=== PATIENT | male | born 1960 | race Caucasian/White ===

== ENCOUNTER 2021-06-11 07:34 | Outpatient (CLI) | payer OTHER, SELFPAY ==
--- NOTE | ~2021-06-11 | CT_ITS ---
EXAMINATION: CT abdomen pelvis w con DATE: 06/11/2021 08:39 INDICATION: Abdominal pain and swelling TECHNIQUE: Computed tomography (CT) of the abdomen and pelvis was performed with 100 cc Omnipaque 350 intravenous contrast. Automated exposure control and iterative reconstruction technique were employe d. Exam dose: 1363.16 mGy-cm total exam DLP. COMPARISON: None. FINDINGS: Posterior basilar left lower lobe probably calcified pulmonary granuloma. The lung bases ar e clear of infiltrate or consolidation. Normal heart size. Coronary artery calcification. No pericardial or pleural effusion. Small sliding hiatal hernia. The liver, gallbladder, spleen, pancreas are unremarkable other than calcified pulmonary granulomas a nd a single calcification of the pancreatic head. No gallbladder wall thickening or pericholecystic fluid or fat stranding. No bile duct or pancreatic duct dilatation. Normal morphology of the adrenal glands. There is a pinpoint nonobstructing right renal calculus. No ureteral calculus or hydroureteronephrosi s is noted on either side. There is normal caliber and mild atherosclerotic calcification of the abdominal aorta. There is prominent periaortic and aortocaval lymphadenopathy as well as adenopathy along the bilatera l common, external iliac and particularly bilateral internal iliac lymph node chains. There is prostate enlargement and irregularity as well as some heterogeneous enhancement, suggesting prostate carcinoma with metastatic lymphadenopathy. There is bladder wall thickening and there is prominent fat stranding around the urinary bladder sugg esting possible cystitis. Normal appendix. No bowel obstruction or intraperitoneal free air. Small bilateral fat-containing inguinal hernias. There are degenerative changes of the thoracic and lumbar spine including moderately severe degenerat rita disc disease at L4-5 and prominent degenerative change at the apophyseal joints of the lumbar and lumbosacral area. No suspicious osteolytic or osteoblastic lesions are identified.. IMPRESSION: Periaortic, aortocaval, bilateral common, external and particularly internal iliac lymph adenopathy; differential diagnosis includes metastatic disease, very possibly due to prostate cancer, also lymphoma. Prostate enlargement and irregular enhancement, suggesting prostate cancer Bladder wall thickening and fat stranding around the bladder, suggesting bladder outlet obstruction a nd possible cystitis Small sliding hiatal hernia Pinpoint nonobstructing right renal calculus Dr. Ang telephoned on 06/11/2021 at [address] Monge's medical secretary receptionist, leaving telephone numbe r for Dr. Monge to return call for examination results. Dr. Monge returned the phone call and was given the results by Dr. Ang at 0945 hours on 06/11/2021. Reviewed, dictated and finalized at [facility]. Reviewed, dictated and finalized at [facility]. L RIGHTS INVESTIGATOR IMPRESSION: Periaortic, aortocaval, bilateral common, external and particularl y internal iliac lymphadenopathy; differential diagnosis includes metastatic di sease, very possibly due to prostate cancer, also lymphoma. Prostate enlargement and irregular enhancement, suggesting prostate cancer Bladder wall thickening and fat stranding around the bladder, suggesting bladde r outlet obstruction and possible cystitis Small sliding hiatal hernia Pinpoint nonobstructing right renal calculus Dr. Ang telephoned on 06/11/2021 at [address] Monge's medical secretary receptionist, [facility] telephone number for Dr. Monge to return call for examination results . Dr. Monge returned the phone call and was given the results by Dr. Ang at 0 945 hours on 06/11/2021.
[2021-06-11 08:32] LABS: Estimated Glomerular Filt Rate > 60
== END 2021-06-11 07:35 | disposition home or self-care (01) ==
LOC: ANHIMG 07:39
DX: M79.89 Other specified soft tissue disorders (principal); K44.9 Diaphragmatic hernia without obstruction or gangrene; N20.0 Calculus of kidney; N40.0 Benign prostatic hyperplasia without lower urinary tract symptoms
CPT/HCPCS: 74177; Q9967

== ENCOUNTER 2022-07-28 16:39 | Emergency (ER) | payer OTHER, SELFPAY ==
[2022-07-28 16:51] VITALS: BP 147/109; PULSE 101; RESP 18; TEMP 36.5; O2SAT 97
--- NOTE | 2022-07-28 16:51 | ED.DENTAL ---
HPI - Dental/Oral General Chief complaint: Dental/Oral Stated complaint: toothache Time Seen by Provider: 07/28/22 16:56 Source: patient Mode of arrival: ambulatory History of Present Illness HPI Narrative: 62 Year old man presented for complaint of left lower dental pain for about 9 days. Endorses the pain has been worsening and is radiating into the jaw with mild swelling. He reports he has a filling to this site. He denies pus or drainage, vomiting, fevers or chills. Denies dysphagia, odynophagia, dysphonia, or dyspnea. He has been taking at 1000 mg of ibuprofen 3 to 4 times a day. He has a dentist appointment scheduled on 08/07/2022. MD Complaint: tooth pain Related Data Home Medications Medication Instructions Recorded Confirmed aspirin 81 mg chewable tablet 81 mg PO DAILY 07/28/22 07/28/22 darolutamide 300 mg tablet (Nubeqa) 300 mg PO BID 07/28/22 07/28/22 escitalopram oxalate 10 mg tablet 10 mg PO DAILY 07/28/22 07/28/22 metoprolol succinate 25 mg 25 mg PO DAILY 07/28/22 07/28/22 tablet,extended release 24 hr prochlorperazine maleate 10 mg 10 mg PO PRN PRN Nausea 07/28/22 07/28/22 tablet zolpidem 5 mg tablet 5 mg PO HS PRN Insomnia 07/28/22 07/28/22 Allergies Allergy/AdvReac Type Severity Reaction Status Date / Time No Known Allergies Allergy Verified 07/28/22 16:56 Review of Systems Review of Systems: CONSTITUTIONAL: Denies body aches, fever, chills ENT: Denies rhinorrhea, congestion, sore throat, or otalgia. Reports dental pain CARDIOVASCULAR: Denies chest pain, palpitations RESPIRATORY: Denies cough or dyspnea. SKIN: Denies rash, itching, or wounds. MUSCULOSKELETAL: Denies myalgia. NEUROLOGIC: Denies headache, numbness, tingling, or weakness. [facility] Past Medical History Medical History (Updated 07/28/22 @ 17:14 by Roxanna Mendieta APRN) Hypertension Prostate cancer Comments At time of signature, I have reviewed and agree with nursing past medical, surgical, social and family history unless otherwise noted. Please see nursing chart for further information. There is no relevant family history pertinent to the presenting complaint Exam Narrative: GENERAL: Appears in pain; no acute distress. HEAD: Normocephalic, atraumatic. EYES: EOMI. No redness or drainage. Conjunctivae normal. ENT: Dental pain location of #18, dental caries noted; erythematous gum with mild swelling, no drainage; Mucous membranes pink and moist. Throat normal. Uvula midline. NECK: Normal AROM. No erythema, swelling or lymphadenopathy. CHEST: No respiratory distress. Clear to auscultation. HEART: Regular rate and rhythm. No murmur appreciated. SKIN: Warm, dry, no rash. Normal skin turgor. NEURO: No focal deficits. Alert and oriented x3. Gait steady. Course Course Emergency Course: Patient is aware of diagnosis, understands and agrees to treatment plan. Anticipatory guidance given. Patient agrees to follow-up as directed and is aware of reasons to seek care at the emergency department. Portions of this record may have been created with voice recognition software Level of Care: Express Care Visit MDM - Dental/Oral MDM Narrative Medical decision making narrative: Patients pain and complaint coupled with physical findings are consistent with dentalgia. There are no focal signs of space occupying lesions that are compromising to the airway; No uvular deviation or soft palate edema. Patient is non-toxic appearing. The floor of the mouth is soft with no signs of Darci's Angina; Patient is without trismus or drooling and able to swallow secretions. Patient is felt appropriate for discharge home with dental follow up as scheduled. Rx abx and pain med. Advised to limit use of ibuprofen, hx HTN and reports nausea. Patient also states he recently started a bp medication on low dose. Monitors bp and home and has close f/u with pcp. Differential Diagnosis Differential diagnosis: Likely gingival abscess, dental car
== END 2022-07-28 17:12 | disposition home or self-care (01) ==
PROVIDERS: Emergency Provider Nurse Practitioner Family
DX: K08.89 Other specified disorders of teeth and supporting structures (principal); I10 Essential (primary) hypertension; Z85.46 Personal history of malignant neoplasm of prostate; Z79.82 Long term (current) use of aspirin
CPT/HCPCS: 99213; G0463